=== PATIENT | male | born 1985 | race Caucasian/White ===

== ENCOUNTER → 2016-06-29 | Outpatient (CLI) | payer OTHER | LOC: RAD 12:25 | DX: R07.81 Pleurodynia (principal); W19.XXXS Unspecified fall, sequela | CPT/HCPCS: 71101; 72070; 72100 ==

== ENCOUNTER → 2020-04-28 | Outpatient (CLI) | payer OTHER ==
[~2020-04-28] MED LIST: COLACE100 MG PO; IBU800 MG PO; METHOCARBAMOL500 MG PO; NORCO 5-325 TA1 EACH PO; NORFLEX 100 MG100 MG PO; OMEPRAZOLE20 MG PO; ONDANSETRON HCL4 MG PO
== END ==
LOC: KOH-I 14:08
DX: M54.5 Low back pain (principal); M54.9 Dorsalgia, unspecified; M51.26 Other intervertebral disc displacement, lumbar region; M48.061 Spinal stenosis, lumbar region without neurogenic claudication
CPT/HCPCS: 72146; 72148

== ENCOUNTER 2020-07-03 21:34 | Emergency (ER) | payer OTHER ==
[~2020-07-03 21:34] MED LIST changes: -METHOCARBAMOL500 MG PO; -OMEPRAZOLE20 MG PO; -ONDANSETRON HCL4 MG PO
[2020-07-04] MEDS ORDERED: COLACE100 MG PO (10:26)
[2020-07-27] MEDS ORDERED: OMEPRAZOLE20 MG PO (08:56)
[2020-07-27] MEDS ORDERED: METHOCARBAMOL500 MG PO (08:56)
[2020-07-27] MEDS ORDERED: ONDANSETRON HCL4 MG PO (08:57)
== END 2020-07-03 23:09 | disposition left against medical advice (07) ==
LOC: ER1 21:34
DX: Z53.21 Procedure and treatment not carried out due to patient leaving prior to being seen by health care provider (principal)

== ENCOUNTER 2020-07-04 08:09 | Emergency (ER) | payer OTHER ==
[2020-07-04 09:18] LABS: HEMOGLOBIN 16.6 gm/dl (14.0-17.5); RED BLOOD COUNT 5.26 M/UL (4.20-5.50); WHITE BLOOD COUNT 4.7 K/UL (4.5-11.0)
[2020-07-04 09:32] LABS: BUN/CREATININE RATIO 14 (0-10)
[2020-07-04] MEDS ORDERED: COLACE100 MG PO (10:26)
[2020-07-27] MEDS ORDERED: METHOCARBAMOL500 MG PO (08:56)
[2020-07-27] MEDS ORDERED: OMEPRAZOLE20 MG PO (08:56)
[2020-07-27] MEDS ORDERED: ONDANSETRON HCL4 MG PO (08:57)
== END 2020-07-04 11:23 | disposition home or self-care (01) ==
LOC: ER1 08:09
PROVIDERS: Emergency Medicine
DX: K60.2 Anal fissure, unspecified (principal); F17.210 Nicotine dependence, cigarettes, uncomplicated
CPT/HCPCS: 80053; 81001; 83690; 85025; 99284; Q9967

== ENCOUNTER → 2020-07-10 | Outpatient (CLI) | payer OTHER ==
[~2020-07-10] MED LIST changes: +METHOCARBAMOL500 MG PO; +OMEPRAZOLE20 MG PO; +ONDANSETRON HCL4 MG PO
== END ==
LOC: KOH-I 15:17
DX: M25.571 Pain in right ankle and joints of right foot (principal); M79.89 Other specified soft tissue disorders
CPT/HCPCS: 73610

== ENCOUNTER → 2020-07-27 | Day surgery (SDC) | payer OTHER | END | disposition home or self-care (01) | LOC: OR 07:32 | DX: K62.5 Hemorrhage of anus and rectum (principal); G89.29 Other chronic pain; M54.9 Dorsalgia, unspecified; M19.90 Unspecified osteoarthritis, unspecified site; I25.2 Old myocardial infarction; E78.00 Pure hypercholesterolemia, unspecified; K21.9 Gastro-esophageal reflux disease without esophagitis; Z79.899 Other long term (current) drug therapy | CPT/HCPCS: J2001; J2704; J7120 ==

== ENCOUNTER 2020-11-28 21:20 | Emergency (ER) | payer OTHER ==
[~2020-11-28] VITALS: Ht 157.5 cm; Wt 77.1 kg
[2020-11-28 22:15] LABS: HEMOGLOBIN 14.7 gm/dl (14.0-17.5); RED BLOOD COUNT 4.57 M/UL (4.20-5.50)
[2020-11-28 23:23] LABS: BUN/CREATININE RATIO 13 (0-10)
== END 2020-11-29 05:00 | disposition home or self-care (01) ==
LOC: ER1 21:20
PROVIDERS: Physician Assistant
DX: Z23 Encounter for immunization (principal); U07.1 COVID-19; J12.82 Pneumonia due to coronavirus disease 2019; F17.200 Nicotine dependence, unspecified, uncomplicated
CPT/HCPCS: 36600; 71045; 80053; 82550; 82553; 82803; 83605; 83874; 84484; 85025; 87040; 87081; 87880; 93005; 94760; 96374; 99285; J1100; M0243; Q9967

== ENCOUNTER → 2021-06-23 | Outpatient (CLI) | payer OTHER ==
[2021-06-23 11:15] LABS: HEMOGLOBIN 15.8 gm/dl (14.0-17.5); RED BLOOD COUNT 5.28 M/UL (4.20-5.50); WHITE BLOOD COUNT 7.9 K/UL (4.5-11.0)
[2021-06-23 11:18] LABS: BUN/CREATININE RATIO 18 (0-10)
[2021-06-23 12:33] LABS: ADENOVIRUS F 40/41 Not Detected (Negative); ASTROVIRUS Not Detected (Negative); CAMPYLOBACTER Not Detected (Negative); CRYPTOSPORIDIUM Not Detected (Negative); E.COLI 0157 Not Detected (Negative); ENTAMOEBA HISTOLYTICA Not Detected (Negative); ENTEROAGGREGATIVE E.COLI (EAEC Not Detected (Negative); ENTEROPATHOGENIC E.COLI (EPEC) Not Detected (Negative); ENTEROTOXIGENIC E.COLI (ETEC) Not Detected (Negative); GIARDIA LAMBLIA Not Detected (Negative); NOROVIRUS GI/GII Not Detected (Negative); PLESIOMONAS SHIGELLOIDES Not Detected (Negative); ROTOVIRUS A Not Detected (Negative); SALMONELLA Not Detected (Negative); SAPOVIRUS Not Detected (Negative); SHIG/ENTEROINVAS.ECOLI (EIEC) Not Detected (Negative); SHIGA-LIK TOX.PRO.E.COLI (STEC Not Detected (Negative); VIBRIO Not Detected (Negative); VIBRIO CHOLERAE Not Detected (Negative); YERSINIA ENTEROCOLITICA Not Detected (Negative)
[2021-06-23 14:26] LABS: CLOSTRIDIUM DIFFICILE TOX A/B Not Detected (Negative)
[2021-06-24 16:14] LABS: ENDOMYSIAL ANTIBODY IGA Negative (Negative); IMMUNOGLOBULIN A, QN, SERUM 130 mg/dL (90-386); T-TRANSGLUTAMINASE (TTG) IGA <2 U/mL (0-3)
== END ==
LOC: LAB 09:55
PROVIDERS: Physician Assistant
DX: E78.1 Pure hyperglyceridemia (principal); R73.03 Prediabetes; E55.9 Vitamin D deficiency, unspecified; R19.7 Diarrhea, unspecified
CPT/HCPCS: 36415; 80053; 80061; 82784; 83036; 83993; 85025; 87507